=== PATIENT | female | born 1980 | race Caucasian/White ===

== ENCOUNTER 2016-07-18 05:46 | Emergency (ER) | payer BC ==
[~2016-07-18] VITALS: Ht 177.8 cm; Wt 76.4 kg
[~2016-07-18 05:46] MED LIST: ALEVE220 MG PO
[2016-07-18 06:28] LABS: HEMATOCRIT 39.6 % (36.0-46.0); MCH 29.3 PG (29.0-34.0); MCHC 32.6 G/DL (30.0-36.0); MEAN PLAT.VOLUME 10.4 uM^3 (9.5-12.4); PLATELET COUNT 222 K/uL (156-360); RBC DIS.WIDTH-CV 12.5 % (11.8-14.6); RBC DIS.WIDTH-SD 41.4 % (39-53); WHITE BLOOD COUNT 7.8 K/uL (4.1-10.2)
[2016-07-18 06:43] LABS: CHLORIDE 107 mEq/L (99-109); GLUCOSE 84 mg/dL (70-99); POTASSIUM 3.8 mEq/L (3.7-5.4); SODIUM 139 mEq/L (136-147)
[2016-07-18 06:44] LABS: ANION GAP 13 MEQ/L (2-14)
[2016-07-18 06:47] LABS: GFR ESTIMATE (CALCULATED) > 59 mL/min/
[2016-07-18 06:48] LABS: UREA NITROGEN (BUN) 18 mg/dL (9-23)
[2016-07-18 06:49] LABS: TROP-I INTERPRETATION NEGATIVE; TROPONIN-I < 0.01 ng/mL (0.0-0.30)
[2016-07-18 06:53] LABS: D-DIMER ELISA 0.29 mg/L FEU (< 0.57)
[2016-07-18 07:02] LABS: QUANTITATIVE HCG < 4.0 MIU/ML
[2016-07-18 09:12] LABS: INFLUENZA A VIRAL ANTIGEN NEGATIVE; INFLUENZA B VIRAL ANTIGEN POSITIVE
[2016-07-18] MEDS ORDERED: TAMIFLU75 MG PO (09:16)
[2016-07-18 09:32] VITALS: BP 110/63
== END 2016-07-18 09:33 | disposition home or self-care (01) ==
LOC: EME 05:46
PROVIDERS: Emergency Medicine
DX: J10.1 Influenza due to other identified influenza virus with other respiratory manifestations (principal); R55 Syncope and collapse
CPT/HCPCS: 71020; 80048; 84484; 84702; 85027; 85379; 87502; 93005; 94640; 99281; 99285; J7030